=== PATIENT | female | born 1990 | race African-American/Black ===

== ENCOUNTER 2019-04-03 03:12 | Emergency (ER) | payer OTHER ==
[~2019-04-03] VITALS: Ht 160 cm; Wt 72.6 kg
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
--- NOTE | 2019-04-03 03:25 | NUR ---
ED Nurse Note: iv access established.
[2019-04-03 03:29] VITALS: BP 106/62
--- NOTE | 2019-04-03 03:29 | NUR ---
ED Nurse Note: pt down to ct.
--- NOTE | 2019-04-03 03:45 | NUR ---
ED Nurse Note: pt back from imaging
--- NOTE | 2019-04-03 03:50 | NUR ---
ED Nurse Note: blood collected; sent down to lab.
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
[2019-04-03] MEDS ORDERED: IBUPROFEN600 MG ORAL (04:34)
[2019-04-03 04:45] VITALS: BP 134/70
--- NOTE | 2019-04-03 04:45 | NUR ---
ER DISCHARGE NOTE: Patient is cleared to be discharged per ERMD, pt is aox4, on room air, with stable vital signs. pt was given dc and prescription instructions, pt was able to verbalize understanding, pt id band and iv site removed without complications. pt is able to ambulate with steady gait. pt took all belongings.
== END 2019-04-03 04:45 | disposition home or self-care (01) ==
LOC: EMR 03:28
DX: S09.90XA Unspecified injury of head, initial encounter (principal); F10.920 Alcohol use, unspecified with intoxication, uncomplicated; W19.XXXA Unspecified fall, initial encounter; Y93.9 Activity, unspecified; Y92.9 Unspecified place or not applicable; S00.81XA Abrasion of other part of head, initial encounter
CPT/HCPCS: 36415; 70450; 80329; 96374; 99284; J2405